=== PATIENT | male | born 1990 | race Caucasian/White ===

== ENCOUNTER 2017-08-24 18:13 | Emergency (ER) | payer OTHER ==
[~2017-08-24] VITALS: Ht 177.8 cm; Wt 125.0 kg
[2017-08-24 19:05] LABS: HEMATOCRIT 27.1 % (38.0-50.0); MCH 29.8 PG (29.0-34.0); MCHC 33.9 G/DL (30.0-36.0); MCV 87.7 FL (86-99); MEAN PLAT.VOLUME 10.5 uM^3 (9.0-12.4); PLATELET COUNT 237 K/uL (156-360); RBC DIS.WIDTH-CV 13.2 % (11.8-14.6); RBC DIS.WIDTH-SD 42.2 % (39-53); RED BLOOD COUNT 3.09 M/uL (4.00-5.50); WHITE BLOOD COUNT 12.5 K/uL (4.1-10.2)
[2017-08-24 19:16] LABS: ADD MIUA? NO; BILIRUBIN NEGATIVE; BLOOD NEGATIVE; COLOR YELLOW ((YELLOW)); GLUCOSE (STRIP) NEGATIVE; KETONES NEGATIVE; LEUKOCYTES NEGATIVE; NITRITE NEGATIVE; PROTEIN (STRIP) NEGATIVE; SPECIFIC GRAVITY 1.011 (1.000-1.030); UCUL ADDED? NO; UROBILINOGEN 0.2 MG/DL (0.2-1.0)
[2017-08-24 19:18] LABS: CHLORIDE 98 mEq/L (99-109); POTASSIUM 4.4 mEq/L (3.7-5.4); SODIUM 137 mEq/L (136-147)
[2017-08-24 19:20] LABS: GLUCOSE 101 mg/dL (70-99)
[2017-08-24 19:21] LABS: ANION GAP 9 MEQ/L (2-14)
[2017-08-24 19:23] LABS: GFR ESTIMATE (CALCULATED) > 59 mL/min/
[2017-08-24 19:24] LABS: UREA NITROGEN (BUN) 25 mg/dL (9-23)
[2017-08-24] MEDS ORDERED: KEFLEX500 MG PO (22:56)
[2017-08-24 23:32] VITALS: BP 104/58
== END 2017-08-24 23:35 | disposition home or self-care (01) ==
LOC: EME 18:13
PROVIDERS: Emergency Medicine
DX: R50.82 Postprocedural fever (principal); Z95.2 Presence of prosthetic heart valve; Z98.890 Other specified postprocedural states; Z88.5 Allergy status to narcotic agent
CPT/HCPCS: 71020; 71260; 74177; 80048; 81003; 85027; 99281; 99285